=== PATIENT | female | born 1955 | race Two or more races ===

== ENCOUNTER 2024-08-13 18:02 | Inpatient (IN) | payer OTHER ==
[2024-08-13 18:54] VITALS: BMI 42.0
[2024-08-13] MEDS ORDERED: MAGNESIUM HYDROX 2400MG/30ML ORAL SUSPENSION 30 ML CUP PO PRN (19:39)
[2024-08-13] MEDS ORDERED: NALOXONE (NYS OPIOID OVERDOSE PROGRAM) 4 MG/0.1 ML SPRAY NS PRN (19:39)
[2024-08-13] MEDS ORDERED: ACETAMINOPHEN 325 MG TABLET (FP) PO PRN (19:39)
[2024-08-13] MEDS ORDERED: guaiFENesin 600 MG TABLET.ER (FP) PO PRN (19:39)
[2024-08-13] MEDS ORDERED: LOPERAMIDE HCL 2 MG CAPSULE PO PRN (19:39)
[2024-08-13] MEDS ORDERED: BISMUTH SUBSALICYLATE 524 MG/30 ML PO PRN (19:39)
[2024-08-13] MEDS ORDERED: ONDANSETRON *ODT* 4 MG TABLET SL PRN (19:39)
[2024-08-13] MEDS ORDERED: BENZOCAINE/MENTHOL (CHLORASEPTIC ) LOZENGE MM PRN (19:39)
[2024-08-13] MEDS ORDERED: IBUPROFEN 400 MG TABLET (FP) PO PRN (19:39)
[2024-08-13] MEDS ORDERED: POLYETHYLENE GLYCOL (HEALTHYLAX) 3350 17 GM PACKET PO PRN (19:39)
[2024-08-13] MEDS ORDERED: MAG HYDROX/AL HYDROX/SIMETH 30 ML UNIT-DOSE CUP PO PRN (19:39)
[2024-08-13] MEDS ORDERED: NALOXONE (NARCAN) HCL 4 MG/0.1 ML SPRAY NS PRN (19:39)
[2024-08-13] MEDS ORDERED: BENZONATATE 200 MG CAPSULE PO PRN (19:39)
[2024-08-13] MEDS ORDERED: levETIRAcetam 500 MG TABLET (FP) PO ONE (21:57)
[2024-08-13] MEDS ORDERED: MELATONIN 5 MG TABLETS ONE (21:57)
[2024-08-13] MEDS: MELATONIN 5 MG TABLETS PO SCH (22:01)
[2024-08-13] MEDS: levETIRAcetam 500 MG TABLET (FP) PO SCH (22:01)
[2024-08-13] MEDS: THIAMINE 100 MG TABLET PO SCH (22:01)
[2024-08-14] MEDS: BACLOFEN 10 MG TABLET (FP) PO PRN (07:50)
[2024-08-14 09:26] LABS: POTASSIUM 3.9 mmol/L (3.5-5.1)
[2024-08-14 09:31] LABS: HEMATOCRIT 42.3 % (32.4-45.2); HEMOGLOBIN 14.1 GM/dL (10.7-15.3); MCH 30.1 pg (25.7-33.7); MCHC 33.3 g/dl (32.0-36.0); MEAN CELL VOLUME 90.4 fl (80-96); PLATELET COUNT 293 10^3/uL (134-434); RBC 4.68 M/mm3 (3.60-5.2); RDW 13.2 % (11.6-15.6)
[2024-08-14 09:35] LABS: ALBUMIN 3.4 g/dl (3.4-5.0); BLOOD UREA NITROGEN 14.6 mg/dL (7-18)
[2024-08-14 09:37] LABS: CREATININE 0.7 mg/dL (0.55-1.3)
[2024-08-14 09:39] LABS: BILIRUBIN,TOTAL 0.7 mg/dL (0.2-1); TOT PROT 7.2 g/dl (6.4-8.2)
[2024-08-14] MEDS: PRENATAL VITAMINS W/ FOLIC ACID TABLET (FP) PO SCH (10:16)
[2024-08-14] MEDS: LABETALOL HCL 100 MG TABLET (FP) PO SCH (15:04)
[2024-08-14] MEDS: hydrOXYzine PAMOATE 25 MG CAPSULE (FP) PO PRN (15:04)
[2024-08-14] MEDS: IBUPROFEN 600 MG TABLET (FP) PO PRN (21:19)
[2024-08-14] MEDS: cloNIDine HCL 0.1 MG TABLET PO ONE (21:42)
[2024-08-15] MEDS ORDERED: diazePAM 5 MG TABLET PO PRN (15:17)
[2024-08-15] MEDS: methaDONE HCL 10 MG TABLET (FOR DETOX USE ONLY) PO ONE (15:24)
[2024-08-15] MEDS: diazePAM 5 MG TABLET PO SCH (17:49)
[2024-08-15] MEDS: cloNIDine HCL 0.1 MG TABLET PO PRN (17:49)
[2024-08-17] MEDS: diazePAM 5 MG TABLET PO SCH (06:10)
[2024-08-17] MEDS: methaDONE HCL 10 MG TABLET (FOR DETOX USE ONLY) PO ONE (09:56)
[2024-08-18] MEDS: diazePAM 5 MG TABLET PO SCH (05:58)
[2024-08-18 06:18] VITALS: RESP 18
[2024-08-18 10:06] VITALS: BP 132/72; PULSE 77; TEMP 98
[2024-08-19] MEDS ORDERED: diazePAM 5 MG TABLET PO ONE (06:00)
[2024-08-19] MEDS ORDERED: methaDONE HCL 10 MG TABLET (FOR DETOX USE ONLY) PO ONE (10:00)
== END 2024-08-18 10:35 | disposition home or self-care (01) | DRG 897 ==
LOC: YASAS 18:02 → Y6N 20:47
PROVIDERS: ADMIT Allergy & Immunology; ATTEND Allergy & Immunology
PROC: HZ2ZZZZ Detoxification Services for Substance Abuse Treatment (ICD-10-PCS; principal; 2024-08-13)
DX: F11.23 Opioid dependence with withdrawal (principal); F14.20 Cocaine dependence, uncomplicated; F13.230 Sedative, hypnotic or anxiolytic dependence with withdrawal, uncomplicated; I10 Essential (primary) hypertension; Z86.19 Personal history of other infectious and parasitic diseases; Z86.69 Personal history of other diseases of the nervous system and sense organs
CPT/HCPCS: 36415; 80053; 80305; 85027; 86593; 86780; 93005; 93010; J0475